=== PATIENT | male | born 1990 ===

== ENCOUNTER 2020-05-05 13:58 | Emergency (ER) | payer OTHER ==
--- NOTE | 2020-05-05 14:37 | EDM.PDOC ---
ED HPI GENERAL MEDICAL PROBLEM - General Chief Complaint: Respiratory Problem Stated Complaint: EXPOSURE; COVID 19 Time Seen by Provider: 05/05/20 14:27 - History of Present Illness INITIAL COMMENTS - FREE TEXT/NARRATIVE: History of present illness: 30-year-old male presenting with concerns for risk of exposure to coronavirus. Apparently a close family contact was recently diagnosed with coronavirus. Patient reports that he recently trip took a trip to [place] for 15 days and just got back several days ago. Apparently he was exposed 8 days ago to this family member. Neither constitution party were masked at that time. Patient has not had fevers, cough, difficulty breathing or any symptoms as of yet. Review of systems: As per history of present illness and below otherwise all systems reviewed and negative. Past medical history: As per history of present illness and as reviewed below otherwise noncontributory. Surgical history: As per history of present illness and as reviewed below otherwise noncontributory. Social history: No reported history of drug or alcohol abuse. No tobacco Family history: As per history of present illness and as reviewed below otherwise noncontributory. Physical exam: GEN: no acute distress, well appearing HEENT: Atraumatic, normocephalic Neck: supple. Lungs: No respiratory distress. Heart: RRR Extremities: Atraumatic. Neurovascularly intact. Neuro: Awake, alert, oriented. Neuro Exam nonfocal. Skin: warm, dry, no lesions Diagnostics: Coronavirus Therapeutics: [] MDM: Impression: [] Plan: [] Definitive disposition and diagnosis as appropriate pending reevaluation and re view of above. - Related Data Allergies Allergy/AdvReac Type Severity Reaction Status Date / Time No Known Allergies Allergy Verified 05/05/20 15:24 Home Meds: Home Meds . [No Known Home Meds] 05/05/20 [History] ED ROS GENERAL - Review of Systems Review Of Systems: See Below (See HPI) ED EXAM, GENERAL - Physical Exam Exam: See Below (See HPI) Course - Vital Signs Last Recorded V/S: Last Vital Signs Temp 97.0 F 05/05/20 15:18 Pulse 78 05/05/20 16:50 Resp 18 05/05/20 16:50 BP 114/68 05/05/20 16:50 Pulse Ox 99 05/05/20 16:50 - Orders/Labs/Meds Labs: Laboratory Tests 05/05/20 Range/Units 14:55 COVID-19 (PAULA) POSITIVE H (NEGATIVE) - Re-Assessments/Exams Free Text/Narrative Re-Assessment/Exam: 05/05/20 16:46 Well-appearing. No acute distress. Discussed positive COVID-19 results. Discussed 14 days of self isolation, need to avoid any contact and no work. As the patient's O2 saturation is not low, the patient would meet criteria for outpatient treatment. Departure - Departure Time of Disposition: 16:49 Disposition: Home, Self-Care 01 Clinical Impression: COVID-19 - Discharge Information Instructions: COVID-19 Frequently Asked Questions, COVID-19: How to Protect Yourself and Others - CDC, Prevent the Spread of COVID-19 if You Are Sick - CDC Referrals: PCP,None [Primary Care Provider] - Forms: ED Department Discharge, ED Return to Work/School Form Additional Instructions: Will need to self isolate for 2 weeks, do not leave your house, you will need to have food brought to you. The following information is given to patients seen in the emergency department who are being discharged to home. This information is to outline your options for follow-up care. We provide all patients seen in our emergency department with a follow-up referral. The need for follow-up, as well as the timing and circumstances, are variable depending upon the specifics of your emergency department visit. If you don't have a primary care physician on staff, we will provide you with a referral. We always advise you to contact your personal physician following an emergency department visit to inform them of the circumstance of the visit and for follow-up with them and/or the need for any referrals to a consulting specialist. The emergency department will also refer you to a specialist when appropriate. This referral assures that you have the opportunity for follow-up care with a specialist. All of these measure are taken in an effort to provide you with optimal care, which includes your follow-up. Under all circumstances we always encourage you to contact your private physician who remains a resource for coordinating your care. When calling for follow-up care, please make the office aware that this follow-up is from your recent emergency room visit. If for any reason you are refused follow-up, please contact the [facility] Emergency Department at and asked to speak to the emergency department charge nurse. [facility] [address] [place] [id number] [address] [address]
== END 2020-05-05 16:51 | disposition home or self-care (01) ==
LOC: MW.ED 13:58
DX: U07.1 COVID-19 (principal)
CPT/HCPCS: 99282; U0002